=== PATIENT | male | born 1945 | race Caucasian/White ===

== ENCOUNTER 2018-08-13 07:10 | Day surgery (SDC) | payer MEDICARE, OTHER ==
[~2018-08-13] VITALS: Ht 162.6 cm; Wt 85.7 kg
[2018-08-13] MEDS ORDERED: CALCIUM600 MG PO (07:26)
[2018-08-13] MEDS ORDERED: OMEPRAZOLE20 MG PO (07:26)
[2018-08-13] MEDS ORDERED: METAMUCIL0.4 GM PO (07:27)
[2018-08-13] MEDS ORDERED: VITAMIN D2400 UNIT PO (07:27)
--- NOTE | 2018-08-13 08:56 | NUR ---
08/13/18 0856 Selina Viveros 0810-PATIENT ARRIVED TO PACU ON 3L NC PLACED ON 2L RR EVEN. PATIENT AWAKE DENIES PAIN OR NAUSEA. ABDOMEN SOFT. PATIENT DOZES BACK TO SLEEP.
--- NOTE | 2018-08-13 13:44 | NUR ---
PT ALERT, ORIENTED AND SEEMS PREPARED. FIRST EGD, SEEMED TO HAVE FEW QUESTIONS HE STATED HE JUST WANTS IT OVER AND GET SOME HELP FROM IT. HE THANKED ME FOR COMING IN, EXTENDED A BLESSING. WILL FOLLOW NEEDED
--- NOTE | 2018-08-14 06:17 | OR ---
[facility] [address], [place] [address] Signed DATE OF OPERATION: 08/13/2018 SURGEON: Katheryn Ruiz MD PREOPERATIVE DIAGNOSES: 1. Esophageal dysphagia. 2. Epigastric pain. 3. Gastroesophageal reflux disease. 4. Possible distal esophageal stricture. POSTOPERATIVE DIAGNOSES: 1. Mild gastroduodenitis. 2. Mild distal esophagitis/gastroesophageal junction. 3. Possible mild stricture at gastroesophageal junction. PROCEDURES PERFORMED: 1. EGD with CLOtest and biopsies of the pyloric bulb, antrum, cardia and GE junction. 2. A 54-Barbadian balloon dilation at GE junction. ESTIMATED BLOOD LOSS: None. INDICATIONS: Jayce is a 73-year-old gentleman, who was asked to see me for upper endoscopy. He has been having trouble with esophageal dysphagia. He does point to the area of the larynx, but also points down near the subxiphoid area. He said he feels like food gets stuck and he has to leave the table. He generally just spits up clear fluid and saliva. He said it has been causing quite a bit of epigastric pain. He is often up at night with acid in his throat. He said Zantac did not do much. He has been on omeprazole. He thinks maybe he is feeling a little better. He also has a history of polio. He had been to his primary care provider. In my office, I gave him a booklet on upper endoscopy and we looked at that together along with the risks including, but not limited to gas, bloating, crampy abdominal pain, bleeding, perforation, requiring surgery, and missed diagnosis. We also sent him for a barium swallow and there was a question whether or not he had a smooth stricture in a distal esophagus. There was also question whether or not there might be something pushing on the esophagus. Consequently, he had a CT scan of his chest. This showed a little bit of thickening to the wall of the distal esophagus. I also explained to Jayce the need for IV conscious sedation. He had expressed understanding and wished to proceed. Electronically Signed By: KATHERYN RUIZ MD 08/14/18 0617 PATIENT NAME: JAYCE ISSA OPERATIVE REPORT DATE OF : 49 REPORT #: [id number] PHYSICIAN: KATHERYN RUIZ MD PCP: YVES JEAN PA-C REPORT IS CONFIDENTIAL AND NOT TO BE RELEASED WITHOUT AUTHORIZATION [facility] [address], [place] [address] Signed DESCRIPTION OF PROCEDURE: Jayce was taken into our endoscopy suite and placed in the supine semi-recumbent position. The posterior oropharynx was anesthetized with lidocaine spray. A bite block was utilized for the procedure. He was given 4 mg of Versed and 100 mcg of fentanyl to cover the case. The adult gastroscope was introduced and advanced quite readily out into the third portion of the duodenum. The duodenum was unremarkable. The bulb, the pyloric bulb and the stomach showed some mild erythematous changes. I suspect this is improving on omeprazole. We took a biopsy out of the pyloric bulb and antrum for pathologic review. We also took a biopsy from antrum for CLOtest. Upon retroflexion of scope, I really could not appreciate a hiatal hernia. We went and took a biopsy right at the cardia. There were no ulcerations, no gastric or esophageal varices. The scope was withdrawn up through the area of the GE junction, which seemed compliant without obvious stricture. It seemed to insufflate well. He did have [id number] disruption to the Z-line. We went ahead and took three biopsies in this area. The middle and upper esophagus were unremarkable. We inserted our 54-Barbadian balloon dilator and we dilated the GE junction and his distal esophagus. We could easily pass the balloon through the GE junction up through the esophagus without any resistance whatsoever. After this, the balloon was let down and the gastroscope was removed with the balloon. Jayce tolerated his procedure quite well. RECOMMENDATIONS: I will see Jayce back in my office in the next 7-14 days to review his results. Katheryn Ruiz MD ALB/MODL /[id number] cc: Yves Jean Copies: ~ Electronically Signed By: KATHERYN RUIZ MD 08/14/18 0617 PATIENT NAME: JAYCE ISSA OPERATIVE REPORT DATE OF : 49 REPORT #: [id number] PHYSICIAN: KATHERYN RUIZ MD PCP: YVES JEAN PA-C REPORT IS CONFIDENTIAL AND NOT TO BE RELEASED WITHOUT AUTHORIZATION
== END 2018-08-13 09:45 | disposition home or self-care (01) ==
LOC: OPS 07:10 → DS 07:10 → OPS 08:15 → DS 08:15 → OPS 09:45
PROVIDERS: Colon & Rectal Surgery
PROC: 0DB98ZX Excision of Duodenum, Via Natural or Artificial Opening Endoscopic, Diagnostic (ICD-10-PCS; 2018-08-13)
PROC: 0DB78ZX Excision of Stomach, Pylorus, Via Natural or Artificial Opening Endoscopic, Diagnostic (ICD-10-PCS; 2018-08-13)
PROC: 0DB68ZX Excision of Stomach, Via Natural or Artificial Opening Endoscopic, Diagnostic (ICD-10-PCS; 2018-08-13)
PROC: 0DB48ZX Excision of Esophagogastric Junction, Via Natural or Artificial Opening Endoscopic, Diagnostic (ICD-10-PCS; 2018-08-13)
PROC: 0D748ZZ Dilation of Esophagogastric Junction, Via Natural or Artificial Opening Endoscopic (ICD-10-PCS; principal; 2018-08-13 08:15)
DX: K29.50 Unspecified chronic gastritis without bleeding (principal); K29.80 Duodenitis without bleeding; K20.9 Esophagitis, unspecified; K21.9 Gastro-esophageal reflux disease without esophagitis; Z79.899 Other long term (current) drug therapy; Z87.891 Personal history of nicotine dependence
CPT/HCPCS: 86677; 99153; C1726; G0500; J2250; J3010

== ENCOUNTER → 2020-01-20 | Emergency (ER) | payer MEDICARE, OTHER ==
[~2020-01-20] VITALS: Ht 162.6 cm; Wt 85.7 kg
[~2020-01-20] MED LIST: CALCIUM600 MG PO; METAMUCIL0.4 GM PO; OMEPRAZOLE20 MG PO; VITAMIN D2400 UNIT PO; ZITHROMAX250 MG PO; ZOFRAN4 MG PO
--- NOTE | 2020-01-20 18:53 | EKG ---
[facility] [address] [facility] [place], [place] [address] Signed Sinus rhythm with 1st degree AV block Low voltage QRS Inferior infarct , age undetermined Abnormal ECG No previous ECGs available Confirmed by CLAUDETTE ALCARAZ MD ([id number]) on 01/20/2020 6:53:35 PM Electronically Signed By: CLAUDETTE ALCARAZ MD 01/20/20 185 PATIENT NAME: JAYCE ISSA Electrocardiogram DATE OF : 49 PHYSICIAN: CLAUDETTE ALCARAZ MD REPORT #: [id number] REPORT IS CONFIDENTIAL AND NOT TO BE RELEASED WITHOUT AUTHORIZATION
== END ==
LOC: ED 09:15
DX: U07.1 COVID-19 (principal); J12.89 Other viral pneumonia; E86.0 Dehydration; Z87.891 Personal history of nicotine dependence; Z79.899 Other long term (current) drug therapy
CPT/HCPCS: 71045; 80053; 81001; 83735; 84484; 85025; 93005; 93010; 94640; 96361; 96374; 99285-25; J2405; J7030